=== PATIENT | female | born 1955 | race Caucasian/White ===

== ENCOUNTER 2018-07-19 00:45 | Outpatient (CLI) | payer OTHER, SELFPAY ==
[2018-07-19 09:48] LABS: CREATININE 0.65 mg/dL (0.55-1.02)
--- NOTE | 2018-07-19 10:30 | DI.CT_ITS ---
SYMPTOMS/DIAGNOSIS: DIZZINESS WITH CERVICAL EXTENSION, R42 CT ANGIOGRAPHY CERVICAL REGION: CT angiography was performed with multi slice acquisition and multi planar and 3D reconstruction. CT Angiography was performed with intravenous infusion of 85 cc's of Omnipaque 350. Scanning was performed from the aortic arch to a level just above the [place]. Visualized upper pulmonary lobes appear normal. No cervical mass or adenopathy. Normal appearance of the tracheolaryngeal structures. The orbits appear intact. There is partial opacification of the right maxillary antrum which may represent chronic sinus disease. The visualized brain is unremarkable. The visualized aortic arch appears intact. The major branch vessels appear normal. Common, internal and external carotid arteries are within normal limits bilaterally with no evidence of dissection, aneurysm or stenosis. Intracranial portions of the internal carotid arteries appear normal. Visualized portions of the proximal, middle and anterior cerebral arteries appear normal with no evidence of aneurysm, dissection or stenosis. The vertebral and basilar arteries appear normal with no evidence of aneurysm, dissection or stenosis. Proximal posterior cerebral arteries appear normal. CONCLUSION: Negative CTA cervical region. Scanning from performed from the level of the aortic arch to a level just above the [place].
[2018-07-19] MEDS: Omnipaque 350 MG/ML 100 ML BTL IJ (10:32)
== END 2018-07-19 01:05 ==
PROVIDERS: PCP Family Medicine; Visit Provider Neurological Surgery
DX: R42 Dizziness and giddiness (principal); Z13.89 Encounter for screening for other disorder; J32.9 Chronic sinusitis, unspecified
CPT/HCPCS: 36415; 70498; 82565; J3490

== ENCOUNTER 2018-08-28 09:52 | Outpatient (CLI) | payer OTHER, SELFPAY ==
[2018-08-28 12:31] LABS: Abs Immature Grans 0.02 k/cumm (0.0-0.09); Absolute Basophil Count 0.04 k/cumm (0.0-0.2); Absolute Eosinophil Count 0.03 k/cumm (0.0-0.7); Absolute Lymphocyte Count 0.82 k/cumm (1.2-3.4); Absolute Monocyte Count 0.73 k/cumm (0.11-0.7); Absolute Neutrophil Count 5.12 k/cumm (1.2-6.7); Basophils % 0.6; Eosinophils % 0.4; HCT 42.9 % (36.0-46.0); HGB 14.6 g/dL (12.0-15.5); Immature Grans % 0.3; Lymphocytes % 12.1; Mean Corpuscular Hemoglobin 31.9 pg (27.0-33.0); Mean Corpuscular Volume 93.9 fL (80-95); Mean Platelet Volume 10.6 fL (8.0-11.0); Monocytes % 10.8; Neutrophils % 75.8; Platelet Count 374 x1000/uL (130-400); RBC 4.57 m/cumm (4.00-5.20); White Blood Cell Count 6.76 k/cumm (4.4-10.8)
[2018-08-28 12:54] LABS: TSH (W/Ref FT4) 0.82 uIU/mL (0.358-3.74)
== END 2018-08-28 10:12 ==
PROVIDERS: PCP Family Medicine; Visit Provider Internal Medicine
DX: F41.9 Anxiety disorder, unspecified (principal); N39.0 Urinary tract infection, site not specified
CPT/HCPCS: 36415; 84443; 85025; 87086

== ENCOUNTER 2019-04-29 11:05 | Outpatient (REF) | payer OTHER, SELFPAY ==
--- NOTE | 2019-04-29 10:15 | PAPFT_PTH ---
PATIENT: Mallory Regan LOC: [facility] U#:[id number] AGE/SX: 64/F ROOM: RE04/29/[address]: Brenda Diez MD, DC : 1955 BED: DIS: 04/29/2019 SPEC #: [id number] RECD: 04/29/19 12:55 STATUS: ARCELIA REJulien #: [id number] DOMENICA: 04/29/19 10:[address]: Brenda Diez DEPT: [facility] Cytology RECD BY: Miguelina Iniguez Tissues: 1 - CX/ENDOCX FOR PAP SMEARS Procedures: PAP THIN PREP/UVM Screening HPV DNA PROBE Comments: [id number]
== END 2019-04-29 11:25 ==
LOC: LBN 11:05
PROVIDERS: PCP Family Medicine; Visit Provider Family Medicine
DX: Z12.4 Encounter for screening for malignant neoplasm of cervix (principal); Z11.51 Encounter for screening for human papillomavirus (HPV)
CPT/HCPCS: 88142; 87624

== ENCOUNTER 2020-02-04 01:07 | Outpatient (CLI) | payer BC, SELFPAY ==
--- NOTE | 2020-02-04 11:00 | DI.MAMMO_ITS ---
EXAM: MAMMO SCREENING CLINICAL HISTORY: screening, Z12.39 TECHNIQUE: Mammograms were interpreted according to the usual protocol including computer analysis w [employer] CAD system, tomosynthesis and C-view imaging. COMPARISON: 2011 through 2018 FINDINGS: The breasts are composed of heterogeneously dense fibroglandular densities, Breast Density category C . No suspicious masses or suspicious microcalcifications are seen. No skin thickening or abnormal axillary lymph nodes are seen. There has been no significant change from prior exams. IMPRESSION: BI-RADS Category 1: Negative mammogram Yearly screening mammography is recommended. Breast Density - Category C, heterogeneously dense tissue which decreases the sensitivity of the mamm ogram. The mammogram demonstrates the patient's breast tissue is dense. Dense breast tissue is very common a nd is not abnormal but dense breast tissue can make it harder to find cancer on a mammogram. Also, de nse breast tissue may increase breast cancer risk. This information about the result of the mammogram report was provided to the patient to raise their awareness. Use this report when you speak with the patient about their risks for breast cancer, which includes their family history. At that time, you may recommend additional screening tests (Ultrasound or MRI) as they might be useful based on their r isk. A negative radiographic report should not delay biopsy if a dominant or clinically suspicious mass is present. Up to ten percent of cancers are not identified on mammography. A negative report may reinforce clinical impression. Adenosis and dense breasts may obscure an underlying neoplasm. False positive reports average 6 to 10%.
== END 2020-02-04 01:27 ==
PROVIDERS: PCP Family Medicine; Visit Provider Family Medicine
DX: Z12.31 Encounter for screening mammogram for malignant neoplasm of breast (principal); R92.2 Inconclusive mammogram
CPT/HCPCS: 77063; 77067

== ENCOUNTER 2020-04-05 08:30 | Outpatient (CLI) | payer BC, SELFPAY ==
[2020-04-08 10:29] LABS: Patient Race White; SARS-CoV-2 RNA Undetected (Undetected); SARS-CoV-2 Specimen Source Nasal
== END 2020-04-05 08:50 ==
PROVIDERS: PCP Family Medicine; Visit Provider Family Medicine
DX: Z11.59 Encounter for screening for other viral diseases (principal)
CPT/HCPCS: U0003

== ENCOUNTER 2020-05-05 11:10 | Outpatient (CLI) | payer BC, SELFPAY ==
[2020-05-05 13:13] LABS: HCT 43.1 % (36.0-46.0); HGB 14.2 g/dL (11.2-15.7); MCH 31.2 pg (27.0-33.0); MCHC 32.9 % (32.0-36.0); MCV 94.7 fL (80-95); MPV 10.2 fL (8.0-11.0); Platelet Count 373 10^3/uL (130-400); RBC 4.55 10^6/uL (3.93-5.22); RDW 12.6 % (11.7-14.6); RDW-SD 43.8 fL; WBC 5.19 10^3/uL (4.4-10.8)
[2020-05-05 13:26] LABS: ALT 32 U/L (14-59); AST 23 U/L (15-37); Albumin 4.1 g/dL (3.4-5.0); Alkaline Phosphatase 77 U/L (46-116); Anion Gap 9.3 mmol/L (3-11); BUN 15 mg/dL (7-18); Bilirubin, Total 0.5 mg/dL (0.2-1.0); CO2 27.7 mmol/L (21.0-32.0); Calcium 9.6 mg/dL (8.5-10.1); Calculated LDL 167 mg/dL (<100); Chloride 103 mmol/L (98-107); Cholesterol 279 mg/dL (<200); Glucose 86 mg/dL (74-106); HDL Cholesterol 90 mg/dL (40-60); Potassium 4.3 mmol/L (3.5-5.1); Sodium 140 mmol/L (136-145); TSH (W/Ref FT4) 0.96 uIU/mL (0.36-3.74); Total Protein 7.3 g/dL (6.4-8.2); Triglyceride 112 mg/dL (<150)
[2020-05-06 04:49] LABS: Vitamin D 25 Total 42.8 ng/ml (30-100)
== END 2020-05-05 11:30 ==
PROVIDERS: PCP Family Medicine; Visit Provider Family Medicine
DX: Z00.00 Encounter for general adult medical examination without abnormal findings (principal); K58.9 Irritable bowel syndrome, unspecified; R25.1 Tremor, unspecified; G47.00 Insomnia, unspecified
CPT/HCPCS: 36415; 80053; 80061; 82306; 85027; 84443

== ENCOUNTER 2020-09-20 03:28 | Outpatient (CLI) | payer BC, SELFPAY ==
[2020-09-20 09:52] LABS: Source Nasal/Nares
[2020-09-20 13:22] LABS: COVID-19 PCR Negative (Negative)
== END 2020-09-20 03:29 | disposition home or self-care (01) ==
LOC: LBO 03:28
PROVIDERS: PCP Family Medicine; Visit Provider Surgery
DX: Z20.822 Contact with and (suspected) exposure to COVID-19 (principal); Z01.818 Encounter for other preprocedural examination
CPT/HCPCS: 87635

== ENCOUNTER 2020-09-21 08:21 | Day surgery (SDC) | payer BC, SELFPAY ==
[2020-09-21 08:26] VITALS: BP 107/70; PULSE 75; RESP 16; TEMP 36.4; O2SAT 99
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
[2020-09-21] MEDS: Lactated Ringers 1,000 ML 80 ML IV (09:17)
[2020-09-21 09:56] VITALS: BMI 23.6
--- NOTE | 2020-09-21 10:05 | STOM_PTH ---
PATIENT: Mallory Regan LOC: [facility] U#:[id number] AGE/SX: 65/F ROOM: RE09/21/[address]: Corrie Ricardo : 1955 BED: DIS: 09/21/2020 SPEC #: [id number] RECD: 09/21/20 12:48 STATUS: ARCELIA RE #: [id number] DOMENICA: 09/21/20 10:[address]: Corrie Ricardo DEPT: Surgical Specimen RECD BY: Miguelina Iniguez ENTERED: 09/21/20 12:51 SP TYPE: STOMACH OTHR DR: Brenda Diez MD, DC Tissues: 1 - BIOPSY BOWEL 2 - BIOPSY BOWEL 3 - STOMACH BIOPSY 4 - STOMACH BIOPSY 5 - HERNIA SAC,OTHER 6 - ESOPHAGUS BIOPSY 7 - ESOPHAGUS BIOPSY Procedures: GROSS AND MICRO LEVEL 4 Comments: [id number]
--- NOTE | 2020-09-21 10:23 | W.PM.DSUDISC ---
Discharge Plan Disposition Patient Disposition: HOME Condition: Good Discharge Details Reason For Visit: stomach scope Attending Provider: Corrie Ricardo Primary Care Provider: Brenda Diez Home Meds and New Rx's Prescriptions: Continued cholecalciferol (vitamin D3) 2,000 unit capsule 2,000 unit PO DAILY RF: 0 Adult Probiotic 3 billion cell capsule 3,000 mmu cells PO DAILY RF: 0 omeprazole 20 mg capsule,delayed release(DR/EC) 20 mg PO BID Qty: 60 RF: 1 sucralfate [Carafate] 1 gram tablet 1 g PO QACHS Qty: 90 RF: 1 duloxetine 30 mg capsule,delayed release(DR/EC) 30 mg PO DAILY Qty: 7 RF: 5 gabapentin 100 mg capsule 200 mg PO QHS Qty: 180 RF: 4 Discontinued ibuprofen [Advil] 200 mg tablet 600 mg PO Q6H PRNRF: 0 Discharge Instructions Additional Instructions: Findings: Large hiatal hernia Follow up: 10/07 @ 1pm. Continue with lifestyle modifications: no alcohol, tobacco products, Aspirin or NSAID's (ibuprofen, Motrin, Naprosyn, aleve, etc). Try to minimize: soda pop/any carbonated beverages, caffeine (including tea & chocolate), and acidic foods, (tomatoes, citrus, onions, peppermints) spicy or fried/fatty foods. Do not lie down for 30 minutes after eating, and do not eat 2 hours prior to bedtime. Avoid wearing tight fitting clothing/ belts Please call if you develop: fevers >101.5 Nausea or Vomiting Abdominal pain that is not transient DAY SURGERY UNIT POST EGD INSTRUCTIONS 1. Because there will be medication in your system for the next 24 hours, you may feel a little sleepy. Your coordination will be affected. Therefore: a. Do not drive or operate dangerous equipment for 24 hours. b. Do not drink alcohol beverages for 24 hours (not even beer). c. Plan to go home and rest for the day. d. You may have a slight sore throat for the next 24 to 48 hours. If you do, gargle with salt water 5-6 times a day for relief. 2. Generally there are no restrictions on your activity after a day or so has gone by, but you may feel a bit fatigued for a few days. 3 After you arrive home you may have a light meal and return to a normal diet as you can tolerate it without feeling sick to your stomach. 4. After surgery, you may feel pain or discomfort. This should be only transient, but if it persists please contact your doctor. 5. If there are any questions regarding the findings of your procedure, please feel free to contact your doctor. 6. If you are unable to contact your doctor with a problem, contact the hospital at [phone]. 7. Continue all your regular medications unless directed otherwise. I understand the above instructions and have no questions. Signature of Patient or Responsible Adult Escort Date/Time Name of Responsible Adult Escort Signature of Nurse Date/Time Activity:: No lifting over 20 pounds or strenuous to be x24 hours Diet:: Small light meals x24 hours Discharge Orders Discharge Orders: Discharge Order (Routine); Ordered 09/21/20 Ordered By: Corrie Ricardo DS: Diagnosis Discharge Diagnosis (1) Hiatal hernia with GERD: Status: Acute
--- NOTE | 2020-09-21 10:24 | W.ANESPOSTOP ---
Postoperative Evaluation Date, Time and Location Date Performed: 09/21/20 Time Performed: 10:25 Patient Location: Day Surgery Unit Vital Signs Most Recent Imported Vital Signs: Most Recent Vital Signs Temp Pulse Resp BP Pulse Ox 36.4 C L 75 16 107/70 99 09/21/20 08:26 09/21/20 08:26 09/21/20 08:26 09/21/20 08:26 09/21/20 08:26 Most Recent Manually Entered Vital Signs: Adult Blood Pressure: 98/59 Heart Rate: 79 Respirations: 16 Oxygen Saturation (%): 96 Temperature (C): 36.2 C Pain Score (0-10 Scale): 0 Assessment Mental Status: Awake (Alert & Oriented to Patient Baseline) Airway and Respiratory Function: Patent airway with normal (patient baseline) respiratory exam Cardiovascular Function: Hemodynamically Stable Hydration Status: Adequately Hydrated Nausea & Vomiting: No Nausea or Vomiting Pain: Pt. Denies Any Pain Peripheral Nerve Block: Patient did not receive a nerve block
[2020-09-21 10:25] VITALS: BP 98/56; PULSE 79; RESP 16; TEMP 36.2; O2SAT 96
[2020-09-21 10:26] VITALS: BP 98/59; PULSE 79; RESP 16; TEMPC 36.2; O2SAT 96
[2020-09-21] MEDS: Breeza Beverage 473 ML BTL PO (10:39)
[2020-09-21 10:55] VITALS: BP 130/75; PULSE 69; RESP 16; TEMP 36.3; O2SAT 98
--- NOTE | 2020-09-21 11:00 | DI.CT_ITS ---
EXAM: CT CHEST/ABD W CLINICAL HISTORY: eval of hiatal hernia TECHNIQUE: Imaging Protocol: Axial computed tomography images with coronal and sagittal reformatted images were created and reviewed CONTRAST MATERIAL: Intravenous: Omnipaque 350 Contrast volume:100 mL Oral: Yes COMPARISON: CT CT carotid neck CTA from 07/19/2018 FINDINGS: CHEST: Tracheobronchial tree: Patent where visualized. Pulmonary parenchyma: There is scarring or atelectasis in the lower lobes. No focal consolidating in filtrates are present. No pulmonary nodules are seen. Visualized thyroid gland: Unremarkable. Mediastinum and Pascale: No dominant adenopathy or fluid collection. Pleura: No effusion or pneumothorax. Heart: The heart is not dilated. No coronary artery calcifications are seen. No pericardial effusion. Aorta: Thoracic aorta non-dilated. Lymph nodes: Within normal limits. Soft tissues: Unremarkable. Bones:Normal. ABDOMEN: Liver: Normal density. Several tiny hypodense lesions are seen scattered throughout the liver. They are too small for further characterization but likely reflect small cysts. There is a 1.4 cm simple cyst in the posterior segment of the right lobe of the liver. No suspicious hepatic masses are prese nt. Portal, Superior Mesenteric, and Splenic Veins: Unremarkable. Gallbladder and Biliary Tract: Cholelithiasis. No biliary ductal dilatation. Pancreas: Normal density, no abnormal calcifications or inflammatory process. Spleen: Normal. Adrenals: There is a 0.8 cm hypodense nodule in the right adrenal gland. This likely reflects a smal l adenoma. Kidneys: Normal size, contour and axis. No radiodense stones or obstructive uropathy. No masses seen. Abdominal Aorta: Abdominal portion non-dilated. Mild atherosclerosis. Bowel: No obstruction or bowel wall thickening. There is a large hernia with the majority of the stom ach above the diaphragm. Peritoneal Cavity: No ascites, collection or mesenteric inflammatory response. No free air. Lymph Nodes: Within normal limits. Bones: Unremarkable. Soft Tissues: Unremarkable. IMPRESSION: 1. There is a large hiatal hernia with the majority of the stomach seen above the diaphragm. 2. No acute abnormalities seen in the chest or abdomen. 3. Please see the above discussion for complete details. RADIATION DOSE DELIVERED: 770.04mGy.cm Total DLP DATA REPOSITORY: All CT scans at this facility are submitted to the National Radiology Data Registry (NRDR) Dose Index Registry (DIR) with the [employer] (ACR). RADIATION OPTIMIZATION: All CT scans at this facility use at least one of these dose optimization te chniques: automated exposure control; mA and/or kV adjustment per patient size (includes targeted exa ms where dose is matched to clinical indication); or iterative reconstruction.
[2020-09-21] MEDS: Omnipaque 350 MG/ML 100 ML BTL IJ (12:16)
--- NOTE | 2020-09-23 10:44 | W.PM.ENDDOP ---
Date of service: 09/21/20 Time of Service: 10:30 Endoscopy Report DATE OF PROCEDURE: 09/21/20 PRE-OP DIAGNOSIS: s/s gerd POST-OP DIAGNOSIS: other (lg hiatal hernia ) SURGEON: Corrie Ricardo ANESTHESIA TYPE: General:No Airway PATHOLOGY: other COMPLICATIONS: None DISPOSITION: same day PROCEDURE DESCRIPTION: After informed consent was obtained the patient was take to the procedure room and placed in a supine position. Monitors were applied and a time out was done. The patients name, date of , procedure type, allergies to medications and metal in their body was reviewed. A bite block was placed and the patient was sedated. Once sedated and comfortable the gastroscope was advanced through the oropharynx which was grossly normal into the esophagus. The proximal and mid-esophagus were nl. He has a very large hiatal hernia. At least a third of her stomach is a in her chest. The GE junction is at 32 cm and where the stomach exits the diaphragm is at approximately 40 cm. The mucosa appears pink and healthy. There is not esophageal erosions varices diverticula or stricture apparent. The scope was advanced into the stomach and through the pylorus into the 3rd portion of the duodenum. The duodenum was noted to be normal. Biopsies were done, all specimen is retrieved and no bleeding is noted. the scope was retracted back into the stomach and biopsies were done to rule out H. pylori. There were no gastritis or ulcers ulcers. The scope was retroflexed. The cardia and fundus were noted to be normal. The scope was retracted back into the esophagus and biopsies were done of the GE junction to rule out Bain's. The Z line was regular. The scope was removed and the patient was woken up and taken back to [facility] in stable condition. Follow up: Patient is symptomatic and having reflux issues. She has a very large hiatal hernia. Her mother had one as well. She is still young and fit with minimal health problems. We did discuss that this could be become a more severe problem with the older she gets. We briefly discussed surgical repair. We will obtain a CT today. I will see her back at 2 weeks in the office and we will review the results and discuss surgery in more in detail at that time.
--- NOTE | 2020-09-26 21:46 | W.COLOREPORT ---
Date of service: 09/21/20 Time of Service: 11:00 Colonoscopy Report Date of procedure: 09/21/20 Pre-op diagnosis general: screen Post-op diagnosis procedure note: same Surgeon: Corrie Ricardo Anesthesia Type: General:No Airway Estimated blood loss (mL): 0 Pathology: none sent Complications: None Disposition: same day Prep: Miralax/Dulcolax Retraction Time: 8 mins Procedure Description: After informed consent was obtained the patient was taken to the procedure room and placed in a left decubitous position. Monitors were applied and a time out was done. The patients name, date of , procedure, allergies to medications and metal in their body was reviewed. The patient was then sedated. Once sedated and comfortable a rectal exam was done. External exam was normal. Internal exam revealed a normal sphincter tone and no palpable masses. The scope was then introduced and retrofelexed. No internal hemorrhoids were identified. The scope was then advanced to the cecum without difficulty. The TI and appendiceal orifice were identified. The prep was good. The scope was then slowly retracted over 8 minutes back into the rectum. There are no polyps, AVMs, or diverticula visualized today. The mucosa appears pink and healthy. The scope was removed and the patient was woken up and taken back to Same day surgery in stable condition. The patient tolerated the procedure well and there were no immediate complications. Follow up: The patient should follow up in 10 years, if she is still healthy for anesthesia, unless they develop changes in bowel habits or other new gastrointestinal complaints.
== END 2020-09-21 12:00 | disposition home or self-care (01) ==
PROVIDERS: PCP Family Medicine; Visit Provider Surgery
PROC: 0DJ68ZZ Inspection of Stomach, Via Natural or Artificial Opening Endoscopic (ICD-10-PCS; CPT 43235; principal; 2020-09-21 09:45)
DX: Z12.11 Encounter for screening for malignant neoplasm of colon (principal); K44.9 Diaphragmatic hernia without obstruction or gangrene; K21.9 Gastro-esophageal reflux disease without esophagitis; F41.1 Generalized anxiety disorder; I10 Essential (primary) hypertension; E78.5 Hyperlipidemia, unspecified; K58.9 Irritable bowel syndrome, unspecified; R10.12 Left upper quadrant pain
CPT/HCPCS: 43239; 45378; 88305; 71260; 74160; 88302; J2001; J3490

== ENCOUNTER 2021-07-06 00:24 | Outpatient (CLI) | payer BC, SELFPAY ==
--- NOTE | 2021-07-06 12:17 | DI.MAMMO_ITS ---
Exam(s) MAMMO SCREENING EXAM: MAMMO SCREENING CLINICAL HISTORY: screening,Z12.39. TECHNIQUE: Bilateral full field digital CC and MLO mammographic images were obtained with 3D tomosyn thesis and utilizing computer aided detection (CAD). COMPARISON: Prior mammograms were reviewed, the most recent being January 2020. FINDINGS: The fibroglandular tissue pattern is again noted be dense, this somewhat decreasing the sensitivity o f the mammogram for finding hidden underlying lesions. There are no new obvious masses nor malignant appearing microcalcification groups. There is no significant architectural distortion nor skin thickening-retraction. IMPRESSION: Dense bilateral fibroglandular tissue. No obvious radiographic evidence of malignancy nor significan t change compared to prior mammograms. BI-RADS Category 2 - Benign Findings Breast Density - Category C - Heterogeneously dense Breast density Category C or D implies that the patient has dense breast tissue. Dense breast tissue can make it harder to find cancer on a mammogram. Dense breast tissue is also associated with an incr eased risk of breast cancer. This information about the result of the mammogram report was provided to the patient to raise their awareness. Use this report when you speak with the patient about their risks for breast cancer, which includes their family history. At that time, you may recommend additional screening tests (Ultrasoun d or MRI) as these tests may add significant information. A negative radiographic report should not delay biopsy if a dominant or clinically suspicious mass is present. Up to ten percent of cancers are not identified on mammography. A negative report may reinforce clinical impression. Adenosis and dense breasts may obscure an underlying neoplasm. False positive reports average 6 to 10%. Patient will receive a letter notifying them of these results.
== END 2021-07-06 00:44 ==
PROVIDERS: PCP Family Medicine; Visit Provider Family Medicine
DX: Z12.31 Encounter for screening mammogram for malignant neoplasm of breast (principal)
CPT/HCPCS: 77063; 77067

== ENCOUNTER → 2022-02-24 01:00 | Outpatient (CLI) | payer BC, SELFPAY ==
--- NOTE | 2022-02-24 08:00 | DI.RAD_ITS ---
Exam(s) XR KNEE RT 3V AP,LAT,JAMIE EXAM: XR KNEE RT 3V AP,LAT,JAMIE CLINICAL HISTORY: r knee pain and swelling,m25.561 TECHNIQUE: COMPARISON: No exams were available for comparison FINDINGS: Three views were obtained. There is moderate narrowing of the medial tibiofemoral cartilaginous join t space. Otherwise cartilaginous joint spaces appear well maintained. There appears to be a moderat e knee joint effusion, visible on the lateral view. There is mild marginal osteophyte formation at the medial tibiofemoral joint. No other significant b shyanne abnormality seen. IMPRESSION: Degenerative changes predominantly involving medial tibiofemoral joint. RADIATION DOSE DELIVERED: Total DLP
== END ==
PROVIDERS: PCP Family Medicine; Visit Provider Family Medicine
DX: M17.11 Unilateral primary osteoarthritis, right knee (principal)
CPT/HCPCS: 73562

== ENCOUNTER 2022-06-29 09:55 | Outpatient (REF) | payer MEDICARE, BC, SELFPAY ==
--- NOTE | 2022-06-29 09:10 | PAPFT_PTH ---
PATIENT: Mallory Regan LOC: [facility] U#:[id number] AGE/SX: 67/F ROOM: RE06/29/[address]: Brenda Diez MD, DC : 1955 BED: DIS: 06/29/2022 SPEC #: [id number] RECD: 06/29/22 12:58 STATUS: ARCELIA REQ #: [id number] DOMENICA: 06/29/22 09:[address]: Brenda Diez DEPT: [facility] Cytology RECD BY: Miguelina Iniguez Tissues: 1 - CX/ENDOCX FOR PAP SMEARS Procedures: PAP THIN PREP/UVM Screening HPV DNA PROBE Comments: [id number]
== END 2022-06-29 09:56 | disposition home or self-care (01) ==
LOC: LBN 09:55
PROVIDERS: PCP Family Medicine; Visit Provider Family Medicine
DX: Z12.4 Encounter for screening for malignant neoplasm of cervix (principal); Z11.51 Encounter for screening for human papillomavirus (HPV); Z01.419 Encounter for gynecological examination (general) (routine) without abnormal findings
CPT/HCPCS: 88142; 87624

== ENCOUNTER 2022-07-19 02:43 | Outpatient (CLI) | payer MEDICARE, BC, SELFPAY ==
[2022-07-19 09:09] LABS: ALT 45 U/L (14-59); AST 27 U/L (15-37); Albumin 4.2 g/dL (3.4-5.0); Alkaline Phosphatase 85 U/L (46-116); Anion Gap 7.6 mmol/L (3-11); BUN 14 mg/dL (7-18); Bilirubin, Total 0.5 mg/dL (0.2-1.0); CO2 30.4 mmol/L (21.0-32.0); CREATININE 0.8 mg/dL (0.55-1.02); Calcium 9.9 mg/dL (8.5-10.1); Calculated LDL 135 mg/dL (<100); Chloride 106 mmol/L (98-107); Cholesterol 243 mg/dL (<200); Estimated GFR 81.72 (mL/min/1.73m2); Glucose 96 mg/dL (74-106); HDL Cholesterol 89 mg/dL (40-60); Sodium 144 mmol/L (136-145); TSH (W/Ref FT4) 1.19 uIU/mL (0.36-3.74); Total Protein 8.2 g/dL (6.4-8.2); Triglyceride 98 mg/dL (<150)
== END 2022-07-19 02:44 | disposition home or self-care (01) ==
LOC: LBO 02:43
PROVIDERS: PCP Family Medicine; Visit Provider Family Medicine
DX: E78.5 Hyperlipidemia, unspecified (principal); F41.1 Generalized anxiety disorder; F32.89 Other specified depressive episodes
CPT/HCPCS: 36415; 80053; 80061; 84443

== ENCOUNTER 2022-08-04 00:11 | Outpatient (CLI) | payer MEDICARE, BC, SELFPAY ==
--- NOTE | 2022-08-04 07:45 | DI.DEXA_ITS ---
Exam(s) XR DEXA BONE DENSITY W/WO ASHLIE EXAM: XR DEXA BONE DENSITY W/WO ASHLIE CLINICAL HISTORY: MENOPASUAL OSTEOPOROSIS, M81.0 TECHNIQUE: COMPARISON: No exams were available for comparison FINDINGS: Lateral Spine Image: Unremarkable. No compression deformities identified. Left hip: Total T-Score: -0.4. Total Z-Score: 0.9 T- and Z-scores: Within normal limits. Note is made of osteopenia in the femoral neck with a T-score of -1.1. Lumbar Spine: Total T-Score: -0.7 Total Z-Score: 1.0 T- and Z-scores: Within normal limits. IMPRESSION: No evidence of osteoporosis.
--- NOTE | 2022-08-04 15:22 | DI.MAMMO_ITS ---
Exam(s) MAMMO SCREENING EXAM: MAMMO SCREENING CLINICAL HISTORY: screening,Z12.39 TECHNIQUE: Bilateral full field digital CC and MLO mammographic images were obtained with 3D tomosyn thesis and utilizing computer aided detection (CAD). COMPARISON: Available for comparison. FINDINGS: Masses/Architectural Distortion: None seen. Microcalcifications: No suspicious pleomorphic-type are seen. Skin Thickening/Nipple Retraction: None. IMPRESSION: 1. No significant interval change with no specific features of malignancy noted. 2. Unless there is more urgent need, screening mammography is recommended, as per [employer] guidelines. BI-RADS Category 1 - Negative Breast Density - Category C - Heterogeneously dense Breast density category C or D implies that the patient has dense breast tissue. Dense breast tissue is very common and is not abnormal but dense breast tissue can make it harder to find cancer on a ma mmogram. Also, dense breast tissue may increase their breast cancer risk. This information about the result of the mammogram report was provided to the patient to raise their awareness. Use this report when you speak with the patient about their risks for breast cancer, which includes their family hist ory. At that time, you may recommend for more screening tests (Ultrasound or MRI) as they might be us eful based on their risk. A negative radiographic report should not delay biopsy if a dominant or clinically suspicious mass is present. Up to ten percent of cancers are not identified on mammography. A negative report may reinforce clinical impression. Adenosis and dense breasts may obscure an underlying neoplasm. False positive reports average 6 to 10%. Patient will receive a letter notifying them of these results.
== END 2022-08-04 00:31 ==
LOC: DI 00:11
PROVIDERS: PCP Family Medicine; Visit Provider Family Medicine
DX: M81.0 Age-related osteoporosis without current pathological fracture (principal); Z12.31 Encounter for screening mammogram for malignant neoplasm of breast; Z78.0 Asymptomatic menopausal state
CPT/HCPCS: 77063; 77067; 77080

== ENCOUNTER 2022-08-17 16:01 | Outpatient (REF) | payer MEDICARE, BC, SELFPAY | END 2022-08-17 16:02 | disposition home or self-care (01) | LOC: LBN 16:01 | PROVIDERS: PCP Family Medicine; Visit Provider Family Medicine | DX: R19.7 Diarrhea, unspecified (principal) | CPT/HCPCS: 87329 ==

== ENCOUNTER 2022-09-08 01:31 | Outpatient (CLI) | payer MEDICARE, BC, SELFPAY ==
[2022-09-11 13:50] LABS: Apolipoprotein B, S 102 mg/dL (See Comment)
[2022-09-11 16:46] LABS: Apolipoprotein A1, S 149 mg/dL (>=140); Apolipoprotein B/A 1 ratio 0.7 (See Comment)
== END 2022-09-08 01:32 | disposition home or self-care (01) ==
LOC: LBO 01:31
PROVIDERS: PCP Family Medicine; Visit Provider Family Medicine
DX: E78.5 Hyperlipidemia, unspecified (principal)
CPT/HCPCS: 36415; 82172

== ENCOUNTER → 2022-11-03 10:02 | Outpatient (BNVA) | payer MEDICARE, BC, SELFPAY | PROVIDERS: PCP Family Medicine; Referring Provider Family Medicine; Visit Provider Physician Assistant | DX: M17.11 Unilateral primary osteoarthritis, right knee (principal); M70.51 Other bursitis of knee, right knee | CPT/HCPCS: 20610; 99213; J1030; J1040 ==

== ENCOUNTER → 2023-02-05 08:47 | Outpatient (BNVA) | payer MEDICARE, BC, SELFPAY | PROVIDERS: PCP Family Medicine; Referring Provider Family Medicine; Visit Provider Student in an Organized Health Care Education/Training Program | DX: M17.11 Unilateral primary osteoarthritis, right knee (principal); M70.51 Other bursitis of knee, right knee | CPT/HCPCS: 99213 ==

== ENCOUNTER 2023-04-02 16:24 | Outpatient (REF) | payer MEDICARE, BC, SELFPAY ==
[2023-04-02 17:09] LABS: Bilirubin Negative (Negative); Blood Moderate (Negative); Clarity Clear (Clear); Glucose Negative (Negative); Ketones Negative (Negative); Leukocyte Esterase Small (Negative); Nitrite Negative (Negative); Specific Gravity <= 1.005 (1.005-1.025); Urobilinogen 0.2 mg/dL (Up to 0.2); pH 5.5 (5-8)
[2023-04-02 17:31] LABS: Bacteria Rare HPF (Negative); C & S Indicated? Yes; Casts Negative LPF (Negative); Crystals Negative HPF (Negative); Epithelial Cells Rare HPF (Negative); Mucus Negative (Negative); RBC 0-2 HPF (0-2)
== END 2023-04-02 16:25 | disposition home or self-care (01) ==
LOC: LBN 16:24
PROVIDERS: PCP Family Medicine; Visit Provider Obstetrics & Gynecology Gynecology
DX: R39.15 Urgency of urination (principal)
CPT/HCPCS: 87077; 81003; 81015; 87086; 87186

== ENCOUNTER 2023-05-23 15:15 | Outpatient (REF) | payer MEDICARE, BC, SELFPAY | END 2023-05-23 15:16 | disposition home or self-care (01) | LOC: LBN 15:15 | PROVIDERS: PCP Family Medicine; Visit Provider Family Medicine | DX: R19.7 Diarrhea, unspecified (principal) | CPT/HCPCS: 87329 ==

== ENCOUNTER 2023-05-27 15:14 | Outpatient (REF) | payer MEDICARE, BC, SELFPAY ==
[2023-05-27 20:32] LABS: C Diff PCR Negative (Negative)
== END 2023-05-27 15:15 | disposition home or self-care (01) ==
LOC: LBN 15:14
PROVIDERS: PCP Family Medicine; Visit Provider Family Medicine
DX: R19.7 Diarrhea, unspecified (principal)
CPT/HCPCS: 87493

== ENCOUNTER 2023-06-20 02:49 | Outpatient (CLI) | payer MEDICARE, BC, SELFPAY ==
[2023-06-20 11:16] LABS: HCT 44.7 % (36.0-46.0); HGB 14.7 g/dL (11.2-15.7); MCH 30.7 pg (27.0-33.0); MCHC 32.9 % (32.0-36.0); MCV 93 fL (80-95); MPV 9.9 fL (8.0-11.0); Platelet Count 347 10^3/uL (130-400); RBC 4.79 10^6/uL (3.93-5.22); RDW 12.7 % (11.7-14.6); RDW-SD 43.8 fL; WBC 6.68 10^3/uL (4.4-10.8)
[2023-06-20 11:48] LABS: ALT 38 U/L (14-59); AST 27 U/L (15-37); Alkaline Phosphatase 95 U/L (46-116); Anion Gap 7.9 mmol/L (3-11); BUN 16 mg/dL (7-18); Bilirubin, Total 0.3 mg/dL (0.2-1.0); CO2 29.1 mmol/L (21.0-32.0); CREATININE 0.7 mg/dL (0.55-1.02); Calcium 9.6 mg/dL (8.5-10.1); Calculated LDL 126 mg/dL (<100); Chloride 103 mmol/L (98-107); Cholesterol 242 mg/dL (<200); Estimated GFR 95.32 (mL/min/1.73m2); Glucose 96 mg/dL (74-106); HDL Cholesterol 76 mg/dL (40-60); Sodium 140 mmol/L (136-145); TSH (W/Ref FT4) 0.95 uIU/mL (0.36-3.74); Total Protein 8.1 g/dL (6.4-8.2); Triglyceride 203 mg/dL (<150)
[2023-06-20 12:56] LABS: C-Reactive Protein < 0.05 mg/dL (0.0-0.3)
[2023-06-22 15:57] LABS: IgA 236 mg/dL (85-499); Interpretation (See Note); Tissue Transglutaminase IgA <4.0 CU (<20.0)
[2023-06-23 11:19] LABS: Apolipoprotein A1, S 187 mg/dL (>=140); Apolipoprotein B, S 100 mg/dL (See Comment); Apolipoprotein B/A 1 ratio 0.5 (See Comment)
== END 2023-06-20 02:50 | disposition home or self-care (01) ==
LOC: LBO 02:49
PROVIDERS: PCP Family Medicine; Visit Provider Family Medicine
DX: I10 Essential (primary) hypertension (principal); R19.7 Diarrhea, unspecified; E78.00 Pure hypercholesterolemia, unspecified; E03.9 Hypothyroidism, unspecified
CPT/HCPCS: 36415; 80053; 80061; 82172; 82784; 83516; 85027; 84443; 86140

== ENCOUNTER → 2023-06-25 08:33 | Outpatient (BNVA) | payer MEDICARE, BC, SELFPAY | PROVIDERS: PCP Family Medicine; Referring Provider Family Medicine; Visit Provider Student in an Organized Health Care Education/Training Program | DX: M65.341 Trigger finger, right ring finger (principal); M65.342 Trigger finger, left ring finger; M18.0 Bilateral primary osteoarthritis of first carpometacarpal joints | CPT/HCPCS: 20550; J1030 ==

== ENCOUNTER → 2023-08-08 02:49 | Outpatient (CLI) | payer MEDICARE, BC, SELFPAY ==
--- NOTE | 2023-08-08 08:30 | DI.MAMMO_ITS ---
Exam(s) MAMMO SCREENING EXAM: MAMMO SCREENING CLINICAL HISTORY: screening,z12.39 TECHNIQUE: Bilateral full field digital CC and MLO mammographic images were obtained with 3D tomosyn thesis and utilizing computer aided detection (CAD). COMPARISON: Available for comparison. FINDINGS: Masses/Architectural Distortion: None seen. Microcalcifications: No suspicious pleomorphic-type are seen. Skin Thickening/Nipple Retraction: None. IMPRESSION: 1. No significant interval change with no specific features of malignancy noted. 2. Unless there is more urgent need, screening mammography is recommended, as per [employer] guidelines. BI-RADS Category 1 - Negative Breast Density - Category C - Heterogeneously dense Breast density category C or D implies that the patient has dense breast tissue. Dense breast tissue is very common and is not abnormal but dense breast tissue can make it harder to find cancer on a ma mmogram. Also, dense breast tissue may increase their breast cancer risk. This information about the result of the mammogram report was provided to the patient to raise their awareness. Use this report when you speak with the patient about their risks for breast cancer, which includes their family hist ory. At that time, you may recommend for more screening tests (Ultrasound or MRI) as they might be us eful based on their risk. A negative radiographic report should not delay biopsy if a dominant or clinically suspicious mass is present. Up to ten percent of cancers are not identified on mammography. A negative report may reinforce clinical impression. Adenosis and dense breasts may obscure an underlying neoplasm. False positive reports average 6 to 10%. Patient will receive a letter notifying them of these results.
== END ==
PROVIDERS: PCP Family Medicine; Visit Provider Family Medicine
DX: Z12.31 Encounter for screening mammogram for malignant neoplasm of breast (principal)
CPT/HCPCS: 77063; 77067

== ENCOUNTER → 2023-08-20 02:25 | Outpatient (CLI) | payer MEDICARE, BC, SELFPAY ==
--- NOTE | 2023-08-20 10:25 | DI.RAD_ITS ---
Exam(s) XR FOOT RT COMPLETE EXAM: XR FOOT RT COMPLETE CLINICAL HISTORY: right foot pain,m79.671. TECHNIQUE: 2D digital imaging was performed of the right foot. Three images were obtained. AP, obl ique and lateral views were obtained. COMPARISON: No exams were available for comparison FINDINGS: BONES: No acute fracture is present. No bony destructive lesion is seen. Small enthesophyte is seen a t the posterior calcaneus. JOINTS: No dislocation present. There is mild joint space narrowing and spurring seen at the 1st and 2nd MTP joints. SOFT TISSUE: Normal. IMPRESSION: Mild degenerative changes seen in the foot. DATA REPOSITORY: RADIATION DOSE DELIVERED:
== END ==
PROVIDERS: PCP Family Medicine; Visit Provider Nurse Practitioner Family
DX: M25.561 Pain in right knee (principal); M79.671 Pain in right foot
CPT/HCPCS: 73630

== ENCOUNTER 2023-08-24 11:28 | Outpatient (REF) | payer MEDICARE, BC, SELFPAY ==
[2023-08-24 12:14] LABS: Bilirubin Negative (Negative); Blood Negative (Negative); Clarity Clear (Clear); Glucose Negative (Negative); Ketones Negative (Negative); Leukocyte Esterase Negative (Negative); Nitrite Negative (Negative); Urobilinogen 0.2 mg/dL (Up to 0.2); pH 5.5 (5-8)
== END 2023-08-24 11:29 | disposition home or self-care (01) ==
LOC: LBN 11:28
PROVIDERS: PCP Family Medicine; Visit Provider Family Medicine
DX: R31.9 Hematuria, unspecified (principal)
CPT/HCPCS: 81003

== ENCOUNTER 2023-11-15 12:46 | Outpatient (REF) | payer MEDICARE, BC, SELFPAY | END 2023-11-15 12:47 | disposition home or self-care (01) | LOC: LBN 12:46 | PROVIDERS: PCP Family Medicine; Visit Provider Physician Assistant | DX: N39.0 Urinary tract infection, site not specified (principal) | CPT/HCPCS: 87077; 87086; 87186 ==

== ENCOUNTER 2023-12-04 18:25 | Outpatient (REF) | payer MEDICARE, BC, SELFPAY ==
[2023-12-04 13:58] LABS: Bilirubin Negative (Negative); Blood Negative (Negative); Clarity Clear (Clear); Glucose Negative (Negative); Ketones Negative (Negative); Leukocyte Esterase Trace (Negative); Nitrite Negative (Negative); Specific Gravity <= 1.005 (1.005-1.025); Urobilinogen 0.2 mg/dL (Up to 0.2); pH 5.5 (5-8)
[2023-12-04 14:13] LABS: C & S Indicated? No; Epithelial Cells Rare HPF (Negative); WBC 0-2 HPF (0-5)
== END 2023-12-04 18:26 | disposition home or self-care (01) ==
LOC: LBN 18:25
PROVIDERS: PCP Family Medicine; Visit Provider Family Medicine
DX: N39.0 Urinary tract infection, site not specified (principal)
CPT/HCPCS: 81003; 81015

== ENCOUNTER 2023-12-11 17:55 | Outpatient (REF) | payer MEDICARE, BC, SELFPAY ==
[2023-12-11 17:42] LABS: Bilirubin Negative (Negative); Blood Negative (Negative); Clarity Clear (Clear); Glucose Negative (Negative); Ketones Negative (Negative); Leukocyte Esterase Negative (Negative); Nitrite Negative (Negative); Specific Gravity <= 1.005 (1.005-1.025); Urobilinogen 0.2 mg/dL (Up to 0.2); pH 5.5 (5-8)
[2023-12-11 21:44] LABS: Bilirubin Negative (Negative); Blood Negative (Negative); Clarity Clear (Clear); Glucose Negative (Negative); Ketones Negative (Negative); Leukocyte Esterase Negative (Negative); Nitrite Negative (Negative); Urobilinogen 0.2 mg/dL (Up to 0.2); pH 5.5 (5-8)
== END 2023-12-11 17:56 | disposition home or self-care (01) ==
LOC: LBN 17:55
PROVIDERS: Nurse Practitioner Family; PCP Family Medicine; Visit Provider Family Medicine
DX: R30.0 Dysuria (principal); R39.9 Unspecified symptoms and signs involving the genitourinary system
CPT/HCPCS: 81003; 87480; 87510; 87660

== ENCOUNTER → 2024-01-04 09:34 | Outpatient (BNVA) | payer MEDICARE, BC, SELFPAY | PROVIDERS: PCP Family Medicine; Referring Provider Family Medicine | DX: M70.51 Other bursitis of knee, right knee (principal) | CPT/HCPCS: 20610; J1010 ==

== ENCOUNTER 2024-02-06 09:55 | Outpatient (CLI) | payer MEDICARE, BC, SELFPAY ==
--- NOTE | 2024-02-06 08:15 | DI.RAD_ITS ---
Exam(s) XR CERVICAL SPINE COMP 4-5V EXAM: XR CERVICAL SPINE COMP 4-5V CLINICAL HISTORY: neck and left arm pain M48.02 SPINAL STENOSIS CERVICAL REGION. TECHNIQUE: 2D digital imaging was performed. Five views were performed. COMPARISON: No exams were available for comparison FINDINGS: BONES: No fracture or destructive lesion. Vertebral bodies are unremarkable. Facet degenerative delfino nges are present greatest at C2-3 and C7-T1. DISKS: Mild narrowing of the C3-4 through C6-7 disc spaces. Small endplate osteophytes are present a t C5-6 and C6-7 which cause mild bilateral neural foraminal narrowing. ALIGNMENT: Cervical spinal alignment is within normal limits. The odontoid and atlantoaxial articulat ions are normal. SOFT TISSUE: Normal. The lung apices are clear. IMPRESSION: Degenerative changes at C 5 6 and C6-7 cause mild bilateral neural foraminal narrowing. DATA REPOSITORY: RADIATION DOSE DELIVERED:
== END 2024-02-06 10:15 ==
LOC: DI 09:58
PROVIDERS: PCP Family Medicine; Visit Provider Family Medicine
DX: M48.02 Spinal stenosis, cervical region (principal)
CPT/HCPCS: 72050

== ENCOUNTER 2024-04-08 16:43 | Outpatient (REF) | payer MEDICARE, BC, SELFPAY | END 2024-04-08 16:44 | disposition home or self-care (01) | LOC: LBN 16:43 | PROVIDERS: PCP Family Medicine; Visit Provider Family Medicine | DX: N39.0 Urinary tract infection, site not specified (principal); R82.89 Other abnormal findings on cytological and histological examination of urine | CPT/HCPCS: 87086 ==

== ENCOUNTER 2024-06-11 02:15 | Outpatient (CLI) | payer MEDICARE, BC, SELFPAY ==
--- NOTE | 2024-06-11 11:45 | DI.MRI_ITS ---
Exam(s) MR CERVICAL SPINE WO EXAM: MR CERVICAL SPINE WO CLINICAL HISTORY: severe neck pain and radiculopathy,cervical stenosis,m48.02, TECHNIQUE: Multiplanar multisequence MRI of the cervical spine was performed without intravenous con trast. COMPARISON: CR XR CERVICAL SPINE COMP 4-5V from 02/06/2024 FINDINGS: BONES: Vertebral body heights are maintained. Alignment is normal. Bone marrow signal intensity is wi thin normal limits. CERVICAL CORD: Craniovertebral junction is unremarkable. The cervical cord is normal size and signal intensity. SOFT TISSUES: Unremarkable. C2-3: No disc herniation or bulge is identified. No evidence of neural foraminal narrowing. No signi ficant central canal stenosis. C3-4: No disc herniation or bulge is identified. No evidence of neural foraminal narrowing. No signif icant central canal stenosis. C4-5: No disc herniation or bulge is identified. No evidence of neural foraminal narrowing. No signif icant central canal stenosis. C5-6: Mild loss of disc height. Endplate osteophytes causing moderate left and severe right neural f oraminal narrowing. No significant central canal stenosis. C6-7: Mild loss of disc height. Small endplate osteophytes. He moderate bilateral neural foraminal narrowing. No disc herniation or bulge is identified. No evidence of neural foraminal narrowing. No significant central canal stenosis. C7-T1: No disc herniation or bulge is identified. No evidence of neural foraminal narrowing. No signi ficant central canal stenosis. IMPRESSION: No evidence of disc herniation. Endplate osteophytes cause bilateral neural foraminal encroachment at C5-6 and C6-7. DATA REPOSITORY:
== END 2024-06-11 02:35 ==
LOC: DI 02:15
PROVIDERS: PCP Family Medicine; Visit Provider Family Medicine
DX: M48.02 Spinal stenosis, cervical region (principal)
CPT/HCPCS: 72141

== ENCOUNTER 2024-07-02 13:24 | Outpatient (CLI) | payer MEDICARE, BC, SELFPAY ==
[2024-07-02 13:37] VITALS: BP 162/80; PULSE 82; RESP 18; TEMP 36.6; O2SAT 99
--- NOTE | 2024-07-02 13:56 | PDOC.PAIN ---
Date of service: 07/02/24 Time of Service: 14:17 Pain Managment Procedure Note Procedure Note Procedure Note: CERVICAL EPIDURAL STEROID INJECTION ? Pre-procedure Diagnosis: M54.12- Radiculopathy, cervical region ? Post-procedure Diagnosis:? The same as above ? Sedation:? ? none ? Medication: Depo-Medrol 80 mg, Omnipaque 1 mL ? Estimated blood loss:? less than 2 cc ? Surgeon:? Nehemias Nieves MD Comment: ? Procedure Detail:? The procedure and potential risks were explained to the patient and informed written consent was obtained. The patient was escorted to the procedure room and placed in the prone position. Pillows were utilized for proper positioning and comfort. Time out was performed in the procedure room with nursing staff confirming the patient's identity, procedure to be performed, allergies, and any blood thinning or anti-platelet medications.? The patient's neck and upper back was prepped with ChloraPrep and draped in a sterile fashion. Sterile technique was maintained throughout the procedure.? Sterile gloves were used, a face mask was worn, and new single dose vials of all medications were used with the top being swabbed with alcohol and given time to dry prior to withdrawal of medication. Lidocaine 1% was used to anesthetize the skin. Using a 25-gauge 1.5 inch needle, 1% lidocaine was instilled into the superficial soft tissue overlying the targeted area to provide local anesthesia. With fluoroscopic guidance, a 17 -gauge Tuohy needle was advanced toward the interlaminar space of C7-T1. The needle was then advance through the ligamentum flavum and into the posterior epidural space using the loss of resistance technique. Correct needle placement was confirmed through review of the AP and contralateral oblique fluoroscopic views. A 19-gauge Arrow catheter was threaded cephalad to the midline C5 Following negative aspiration, one cc of Omnipaque 240 contrast was injected which confirmed good flow throughout the epidural space and no evidence of vascular flow or flow into adjacent compartments. Next, following negative aspiration, 1 cc's of normal saline and 80mg of Depo-Medrol was injected. The needle and catheter were gently removed intact. The patient tolerated the procedure well and was transported to the recovery area for observation and discharge instructions. Permanent images saved and recorded. Plan:? Follow up PRN. PAIN PRE PROCEDURE 210 POST PROCEDURE 010 COMMENT:CONSIDER REPEAT OR MEDIAL BRANCH/RF
[2024-07-02 13:59] VITALS: PULSE 93; O2SAT 99
[2024-07-02 14:00] VITALS: PULSE 92; O2SAT 99
[2024-07-02 14:10] VITALS: PULSE 84; O2SAT 99
[2024-07-02] MEDS: Epidural Tray 1 EACH MC (14:14)
[2024-07-02] MEDS: Omnipaque 240 MG/ML 50 ML BTL IJ (14:14)
[2024-07-02] MEDS: methylPREDNISolone ACETATE 40 MG/ML VIAL IJ (14:14)
--- NOTE | 2024-07-02 14:20 | DI.RAD_ITS ---
Exam(s) XR PAIN CLINIC CERVICAL SP 2V EXAM: XR PAIN CLINIC CERVICAL SP 2V CLINICAL HISTORY: DX: Cervical Radiculpathy TECHNIQUE: 2D and realtime digital imaging was performed. CONTRAST MATERIAL: Refer to procedure report. COMPARISON: No exams were available for comparison FINDINGS: Fluoroscopy was provided for Dr. Nieves during the performance of a cervical epidural steroid injec tion. Please refer to the procedure report for complete details. Ka,r=2.59 mGy IMPRESSION: RADIATION DOSE DELIVERED: 0.0 0.0 0
== END 2024-07-02 13:25 | disposition home or self-care (01) ==
LOC: PC 13:24
PROVIDERS: PCP Family Medicine; Visit Provider Anesthesiology Pain Medicine
DX: M54.2 Cervicalgia (principal); M54.12 Radiculopathy, cervical region
CPT/HCPCS: 123; 62321; 72040; 00123; J1010; Q9967

== ENCOUNTER → 2024-07-30 14:08 | Outpatient (BNVA) | payer MEDICARE, BC, SELFPAY | PROVIDERS: PCP Family Medicine; Referring Provider Family Medicine; Visit Provider Nurse Practitioner Adult Health | DX: M54.12 Radiculopathy, cervical region (principal); G25.0 Essential tremor | CPT/HCPCS: 99214 ==

== ENCOUNTER 2024-08-04 14:31 | Outpatient (REF) | payer MEDICARE, BC, SELFPAY | END 2024-08-04 14:32 | disposition home or self-care (01) | LOC: LBN 14:31 | PROVIDERS: PCP Family Medicine; Visit Provider Family Medicine | DX: N76.0 Acute vaginitis (principal); K21.9 Gastro-esophageal reflux disease without esophagitis; I10 Essential (primary) hypertension; E55.9 Vitamin D deficiency, unspecified; K44.9 Diaphragmatic hernia without obstruction or gangrene | CPT/HCPCS: 87480; 87510; 87660 ==

== ENCOUNTER 2024-08-07 12:11 | Outpatient (REF) | payer MEDICARE, BC, SELFPAY ==
[2024-08-07 18:01] LABS: C Diff PCR Negative (Negative)
[2024-08-09 10:54] LABS: Campylobacter PCR Negative (Negative); Salmonella PCR Negative (Negative); Shiga Toxin PCR Negative (Negative); Shigella/Enteroinvasive Ecoli Negative (Negative)
[2024-08-11 15:22] LABS: Giardia Ag, F Negative (Negative)
== END 2024-08-07 12:12 | disposition home or self-care (01) ==
LOC: LBN 12:11
PROVIDERS: PCP Family Medicine; Visit Provider Family Medicine
DX: R19.7 Diarrhea, unspecified (principal)
CPT/HCPCS: 87329; 87493; 87505

== ENCOUNTER 2024-08-08 12:42 | Outpatient (REF) | payer MEDICARE, BC, SELFPAY ==
[2024-08-08 13:30] LABS: Bilirubin Negative (Negative); Blood Negative (Negative); Clarity Clear (Clear); Glucose Negative (Negative); Ketones Negative (Negative); Leukocyte Esterase Negative (Negative); Nitrite Negative (Negative); Urobilinogen 0.2 mg/dL (Up to 0.2); pH 5.5 (5-8)
== END 2024-08-08 12:43 | disposition home or self-care (01) ==
LOC: LBN 12:42
PROVIDERS: PCP Family Medicine; Visit Provider Family Medicine
DX: N39.0 Urinary tract infection, site not specified (principal)
CPT/HCPCS: 81003

== ENCOUNTER 2024-08-14 01:37 | Outpatient (CLI) | payer MEDICARE, BC, SELFPAY ==
[2024-08-14 10:23] LABS: ALT 29 U/L (14-59); AST 24 U/L (15-37); Albumin 4.1 g/dL (3.4-5.0); Alkaline Phosphatase 79 U/L (46-116); BUN 11 mg/dL (7-18); Bilirubin, Total 0.5 mg/dL (0.2-1.0); CREATININE 0.8 mg/dL (0.55-1.02); Calcium 9.7 mg/dL (8.5-10.1); Calculated LDL 165 mg/dL (<100); Chloride 107 mmol/L (98-107); Cholesterol 266 mg/dL (<200); Estimated GFR 80.71 (mL/min/1.73m2); Glucose 101 mg/dL (74-106); HDL Cholesterol 84 mg/dL (>or=50); Potassium 4.4 mmol/L (3.5-5.1); Sodium 144 mmol/L (136-145); Total Protein 7.8 g/dL (6.4-8.2); Triglyceride 88 mg/dL (<150)
[2024-08-14 11:15] LABS: Vitamin B12 586 pg/mL (193-986); Vitamin D 25 Total 45 ng/mL (30-100)
== END 2024-08-14 01:38 | disposition home or self-care (01) ==
PROVIDERS: PCP Family Medicine; Visit Provider Family Medicine
DX: I10 Essential (primary) hypertension (principal); K21.9 Gastro-esophageal reflux disease without esophagitis; K44.9 Diaphragmatic hernia without obstruction or gangrene; E55.9 Vitamin D deficiency, unspecified
CPT/HCPCS: 36415; 80053; 80061; 82306; 82607

== ENCOUNTER 2024-08-14 16:21 | Outpatient (REF) | payer MEDICARE, BC, SELFPAY ==
[2024-08-14 21:07] LABS: Bilirubin Negative (Negative); Blood Negative (Negative); Clarity Cloudy (Clear); Glucose Negative (Negative); Ketones Negative (Negative); Leukocyte Esterase Negative (Negative); Nitrite Negative (Negative); Specific Gravity >= 1.030 (1.005-1.025); Urobilinogen 0.2 mg/dL (Up to 0.2); pH 5.5 (5-8)
== END 2024-08-14 16:22 | disposition home or self-care (01) ==
LOC: LBN 16:21
PROVIDERS: PCP Family Medicine; Visit Provider Family Medicine
DX: N76.0 Acute vaginitis (principal); R35.0 Frequency of micturition; R39.198 Other difficulties with micturition
CPT/HCPCS: 81003; 87480; 87510; 87660

== ENCOUNTER 2024-08-20 09:01 | Outpatient (CLI) | payer MEDICARE, BC, SELFPAY ==
--- NOTE | 2024-08-20 06:00 | DI.RAD_ITS ---
Exam(s) XR PAIN CLINIC CERVICAL SP 2V EXAM: XR PAIN CLINIC CERVICAL SP 2V CLINICAL HISTORY: DX: Cervical Spondylosis. TECHNIQUE: Fluoroscopy was provided for the referring physician for guidance with performing pain cl inic injection procedure. COMPARISON: No exams were available for comparison FINDINGS: Please see procedure note for details. Fluoro time: 36.7 seconds RADIATION DOSE DELIVERED: zachary Caballero=4.98 mGy
[2024-08-20 09:08] VITALS: BP 127/61; PULSE 81; RESP 20; TEMP 37; O2SAT 99
--- NOTE | 2024-08-20 09:35 | PDOC.PAIN_ITS ---
Date of service: 08/20/24 Time of Service: 10:00 Pain Managment Procedure Note Procedure Note Procedure Note: Cervical Facet Joint Injection of Steroid ? Location: Left Facet Joints ? Levels: C5-6,C6-7 ? 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 Post-procedure Diagnosis:? The same as above ? Sedation:? None ? Estimated blood loss:? less than 2 cc ? Surgeon: Nehemias Nieves MD COMMENT: PRE PROCEDURE PAIN SCORE: 3/10. Decision was made to proceed with intra-articular facet injections for the possibility of not having to do medial branch blocks and radiofrequency ablation if patient get long lasting relief (> 3 months). ? Procedure Detail:? The procedure and potential risks were explained to the patient and informed written consent was obtained. The patient was escorted to the procedure room and placed in the right lateral decubitus position. Pillows were utilized for proper positioning and comfort.? Time out was performed in the procedure room with nursing staff confirming the patient's identity, procedure to be performed, allergies, and any blood thinning or anti- platelet medications.? Sterile technique was maintained throughout the procedure .? The patient's cervical area was prepped with chlorhexidine and draped in a sterile fashion. A lateral fluoroscopic view was obtained, with visualization of the facet joint.? A 25gauge, Quincke needle was gently advanced through the facet capsule.? Needle placement was confirmed with fluoroscopy in AP,? and lateral views by injecting 0.25cc of contrast.? 10 mg of depomedrol and 0.25ml of 0.5% bupivacaine was injected into the capsule at C5-6, C6-7 left.? The patient tolerated the procedure well and was discharged with instructions. Permanent images saved and recorded. PAIN: PRE-PROCEDURE 3/10 POST-PROCEDURE 0/10 Plan:? Follow up prn in office or for CMBB #2. COMMENT: Before the patient left patient had greater than 100% pain relief.? Will use this as both diagnostic and potentially therapeutic.? With short-term relief from the level that it was not long-lasting then we will proceed with radiofrequency ablation Coding Conscious Sedation used for procedure: No CPT Codes: CMBB (includes Fluoro) Cervical/Thoracic, single lvl - 16781 ([id number] ~G) CMBB (includes Fluoro) Cervical/Thoracic, 2nd lvl - 00312 ([id number] ~G) Additional Codes: Date of Service (12432) Date of service: 08/20/24
[2024-08-20 09:38] VITALS: PULSE 83; O2SAT 97
[2024-08-20 09:40] VITALS: PULSE 77; O2SAT 99
[2024-08-20 09:50] VITALS: PULSE 73; O2SAT 98
[2024-08-20] MEDS: Bupivacaine 0.5% Pres-Free 10 ML VIAL IJ (09:59)
[2024-08-20] MEDS: Omnipaque 240 MG/ML 50 ML BTL IJ (10:00)
[2024-08-20] MEDS: methylPREDNISolone ACETATE 80 MG/ML VIAL IJ (10:00)
[2024-08-20] MEDS: Nerve Block Tray 1 EACH MC (10:01)
== END 2024-08-20 09:02 | disposition home or self-care (01) ==
LOC: PC 09:02
PROVIDERS: PCP Family Medicine; Visit Provider Anesthesiology Pain Medicine
DX: M54.2 Cervicalgia (principal); M47.812 Spondylosis without myelopathy or radiculopathy, cervical region
CPT/HCPCS: 64490; 64491; 72040; J0665; J1010; Q9967

== ENCOUNTER 2024-08-26 14:03 | Outpatient (REF) | payer MEDICARE, BC, SELFPAY ==
[2024-08-26 18:36] LABS: Bilirubin Negative (Negative); Blood Trace-lysed (Negative); Clarity Clear (Clear); Glucose Negative (Negative); Ketones Negative (Negative); Leukocyte Esterase Trace (Negative); Nitrite Negative (Negative); Specific Gravity <= 1.005 (1.005-1.025); Urobilinogen 0.2 mg/dL (Up to 0.2); pH 5.5 (5-8)
[2024-08-26 18:45] LABS: Bacteria Rare HPF (Negative); C & S Indicated? No; Casts Negative LPF (Negative); Crystals Negative HPF (Negative); Epithelial Cells Negative HPF (Negative); Mucus Negative (Negative); Other Cells Negative (Negative); RBC 0-2 HPF (0-2)
== END 2024-08-26 14:04 | disposition home or self-care (01) ==
LOC: LBN 14:03
PROVIDERS: PCP Family Medicine; Visit Provider Family Medicine
DX: N39.0 Urinary tract infection, site not specified (principal)
CPT/HCPCS: 81003; 81015

== ENCOUNTER 2024-09-09 09:00 | Outpatient (CLI) | payer MEDICARE, BC, SELFPAY ==
--- NOTE | 2024-09-09 09:00 | DI.MAMMO_ITS ---
Exam(s) MAMMO SCREENING EXAM: MAMMO SCREENING CLINICAL HISTORY: screening,z12.39 TECHNIQUE: Mammograms were interpreted according to the usual protocol including computer analysis w [employer] CAD system, tomosynthesis and C-view imaging. COMPARISON: 2015 through 2023 FINDINGS: The breasts are composed of heterogeneously dense fibroglandular densities, Breast Density category C . No suspicious masses or suspicious microcalcifications are seen. No skin thickening or abnormal axillary lymph nodes are seen. There has been no significant change from prior exams. IMPRESSION: BI-RADS Category 1, Negative mammogram. Yearly screening mammography is recommended. Breast Density Category C, heterogeneously Dense. The mammogram demonstrates the patient's breast tissue is dense. Dense breast tissue is very common a nd is not abnormal but dense breast tissue can make it harder to find cancer on a mammogram. Also, de nse breast tissue may increase breast cancer risk. This information about the result of the mammogram report was provided to the patient to raise their awareness. Use this report when you speak with the patient about their risks for breast cancer, which includes their family history. At that time, you may recommend additional screening tests (Ultrasound or MRI) as they might be useful based on their r isk. A negative radiographic report should not delay biopsy if a dominant or clinically suspicious mass is present. Up to ten percent of cancers are not identified on mammography. A negative report may reinforce clinical impression. Adenosis and dense breasts may obscure an underlying neoplasm. False positive reports average 6 to 10%.
[2024-09-10 21:48] LABS: Bilirubin Negative (Negative); Blood Negative (Negative); Clarity Clear (Clear); Glucose Negative (Negative); Ketones Negative (Negative); Leukocyte Esterase Moderate (Negative); Nitrite Negative (Negative); Specific Gravity <= 1.005 (1.005-1.025); Urobilinogen 0.2 mg/dL (Up to 0.2); pH 5.5 (5-8)
[2024-09-10 21:56] LABS: Epithelial Cells Rare HPF (Negative); RBC Negative HPF (0-2); WBC 20-50 HPF (0-5)
[2024-09-10 21:57] LABS: Bacteria Negative HPF (Negative); C & S Indicated? Yes; Crystals Negative HPF (Negative); Mucus Negative (Negative)
== END 2024-09-09 10:00 | disposition home or self-care (01) ==
LOC: LBN 09-10 21:39 → DI 10-24 13:09
PROVIDERS: PCP Family Medicine; Visit Provider Family Medicine
DX: Z12.31 Encounter for screening mammogram for malignant neoplasm of breast (principal); R92.333 Mammographic heterogeneous density, bilateral breasts
CPT/HCPCS: 77063; 77067; 87077; 81003; 81015; 87086; 87186

== ENCOUNTER 2024-09-10 09:28 | Outpatient (CLI) | payer MEDICARE, BC, SELFPAY | END 2024-09-10 09:29 | disposition home or self-care (01) | LOC: LBO 10-24 08:34 | PROVIDERS: PCP Family Medicine; Visit Provider Family Medicine | DX: N39.0 Urinary tract infection, site not specified (principal); R82.89 Other abnormal findings on cytological and histological examination of urine | CPT/HCPCS: 87077; 81003; 81015; 87086; 87186 ==

== ENCOUNTER 2025-03-18 10:57 | Outpatient (CLI) | payer MEDICARE, BC, SELFPAY ==
--- NOTE | 2025-03-18 06:00 | DI.RAD_ITS ---
Exam(s) XR PAIN CLINIC CERVICAL SP 2V EXAM: XR PAIN CLINIC CERVICAL SP 2V CLINICAL HISTORY: DX: Cervical Spondylosis TECHNIQUE: 2D and realtime digital imaging was performed. CONTRAST MATERIAL: Refer to procedure report. COMPARISON: No exams were available for comparison FINDINGS: Fluoroscopy was provided for Dr. Nieves during the performance of a cervical medial branch block. Please refer to the procedure report for complete details. Ka,r=3.31 mGy IMPRESSION: RADIATION DOSE DELIVERED: 0.0 0.0 0
[2025-03-18 11:23] VITALS: BP 140/64; PULSE 80; RESP 14; TEMP 36.4; O2SAT 98
--- NOTE | 2025-03-18 11:34 | PDOC.PAIN_ITS ---
Date of service: 03/18/25 Time of Service: 12:20 Pain Managment Procedure Note Procedure Note Procedure Note: Cervical Facet Joint Injection of Steroid ? Location: Left Facet Joints ? Levels: C5-6, C6-7 ? 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 Post-procedure Diagnosis:? The same as above ? Sedation:? None ? Estimated blood loss:? less than 2 ml ? Surgeon: Nehemias Nieves MD COMMENT: PRE PROCEDURE PAIN SCORE: 6/10. Decision was made to proceed with intra-articular facet injections for the possibility of not having to do medial branch blocks and radiofrequency ablation if patient get long lasting relief (> 3 months).Patient had good relief from cervical facet injection at C5-6 and C6?7 -3-4 months and is here for repeat. Pt has degenerative changes at C 5 6 and C6- 7 cause mild bilateral neural foraminal narrowing. ? Procedure Detail:? The procedure and potential risks were explained to the patient and informed written consent was obtained. The patient was escorted to the procedure room and placed in the [left] [right] lateral decubitus position. Pillows were utilized for proper positioning and comfort.? Time out was performed in the procedure room with nursing staff confirming the patient's identity, procedure to be performed, allergies, and any blood thinning or anti- platelet medications.? Sterile technique was maintained throughout the procedure.? The patient's cervical area was prepped with chlorhexidine and draped in a sterile fashion. A lateral fluoroscopic view was obtained, with visualization of the facet joint.? A 25gauge, Quincke needle was gently advanced through the facet capsule.? Needle placement was confirmed with fluoroscopy in AP,? and lateral views by injecting 0.25 ml of contrast.? 20 mg of depomedrol and 0.25ml of 0.5% bupivacaine was injected into the capsule at C5-6,C6-7 left .? The patient tolerated the procedure well and was discharged with instructions. Permanent images saved and recorded. PAIN: PRE-PROCEDURE 6/10 POST-PROCEDURE 0/10 Plan:? Follow up prn COMMENT: Before the patient left patient had greater than 100% pain relief.? Will use this as both diagnostic and potentially therapeutic.? With short-term relief from the level that it was not long-lasting then we will proceed with radiofrequency ablation . Coding Conscious Sedation used for procedure: No CPT Codes: CMBB (includes Fluoro) Cervical/Thoracic, 2nd lvl - 38681 ([id number] ~G) CMBB (includes Fluoro) Cervical/Thoracic, single lvl - 44355 ([id number] ~G) Additional Codes: Date of Service () Diagnoses: M47.812 Spondylosis without myelopathy or radiculopathy, cervical region
[2025-03-18 12:19] VITALS: PULSE 74; O2SAT 97
[2025-03-18] MEDS: Bupivacaine 0.5% Pres-Free 10 ML VIAL IJ (12:21)
[2025-03-18] MEDS: Omnipaque 240 MG/ML 50 ML BTL IJ (12:22)
[2025-03-18] MEDS: Nerve Block Tray 1 EACH MC (12:23)
[2025-03-18] MEDS: methylPREDNISolone ACETATE 40 MG/ML VIAL (15:04)
== END 2025-03-18 10:58 | disposition home or self-care (01) ==
PROVIDERS: PCP Family Medicine; Visit Provider Anesthesiology Pain Medicine
DX: M54.2 Cervicalgia (principal); M47.812 Spondylosis without myelopathy or radiculopathy, cervical region
CPT/HCPCS: 64490; 64491; 72040; J0665; J1010; Q9967

== ENCOUNTER → 2025-04-13 09:05 | Outpatient (BNVA) | payer MEDICARE, BC, SELFPAY | PROVIDERS: PCP Family Medicine; Referring Provider Family Medicine; Visit Provider Nurse Practitioner Adult Health | DX: G25.0 Essential tremor (principal) | CPT/HCPCS: 99213 ==

== ENCOUNTER 2025-05-19 09:08 | Outpatient (CLI) | payer MEDICARE, BC, SELFPAY ==
--- NOTE | 2025-05-19 06:00 | DI.RAD_ITS ---
Exam(s) XR PAIN CLINIC CERVICAL SP 2V EXAM: XR PAIN CLINIC CERVICAL SP 2V CLINICAL HISTORY: Dx: Cervical Radiculopathy TECHNIQUE: 2D and realtime digital imaging was performed. Radiologist not present. CONTRAST MATERIAL: None. COMPARISON: No exams were available for comparison FINDINGS: Fluoroscopy was provided for pain management therapy. Cervical epidural steroid injection. Please refer to procedure report or details. Radiation Exposure Index: Ka,r=1.97 mGy IMPRESSION: As above. RADIATION DOSE DELIVERED:
[2025-05-19 08:59] VITALS: BP 129/73; PULSE 82; RESP 18; TEMP 36.4; O2SAT 97
--- NOTE | 2025-05-19 09:29 | PDOC.PAIN ---
Date of service: 05/19/25 Time of Service: 10:02 Pain Managment Procedure Note Procedure Note Procedure Note: CERVICAL EPIDURAL STEROID INJECTION ? Pre-procedure Diagnosis: M54.12- Radiculopathy, cervical region ? Post-procedure Diagnosis:? The same as above ? Sedation:? ? none ? Medication: Depo-Medrol 80 mg, Omnipaque 1 mL ? Estimated blood loss:? less than 2 ml ? Surgeon:? Nehemias Nieves MD Comment: ? Procedure Detail:? The procedure and potential risks were explained to the patient and informed written consent was obtained. The patient was escorted to the procedure room and placed in the prone position. Pillows were utilized for proper positioning and comfort. Time out was performed in the procedure room with nursing staff confirming the patient's identity, procedure to be performed, allergies, and any blood thinning or anti-platelet medications.? The patient's neck and upper back was prepped with ChloraPrep and draped in a sterile fashion. Sterile technique was maintained throughout the procedure.? Sterile gloves were used, a face mask was worn, and new single dose vials of all medications were used with the top being swabbed with alcohol and given time to dry prior to withdrawal of medication. Lidocaine 1% was used to anesthetize the skin. Using a 25-gauge 1.5 inch needle, 1% lidocaine was instilled into the superficial soft tissue overlying the targeted area to provide local anesthesia. With fluoroscopic guidance, a 17 -gauge Tuohy needle was advanced toward the interlaminar space of C7-T1. The needle was then advance through the ligamentum flavum and into the posterior epidural space using the loss of resistance technique. Correct needle placement was confirmed through review of the AP and contralateral oblique fluoroscopic views. A 19-gauge Arrow catheter was threaded cephalad to the Left C5 Following negative aspiration, 1 ml of Omnipaque 240 contrast was injected which confirmed good flow throughout the epidural space and no evidence of vascular flow or flow into adjacent compartments. Next, following negative aspiration, 1 ml of normal saline and 80mg of Depo-Medrol was injected. The needle and catheter were gently removed intact. The patient tolerated the procedure well and was transported to the recovery area for observation and discharge instructions. Permanent images saved and recorded. Plan:? Follow up PRN. PAIN PRE PROCEDURE 8 10 POST PROCEDURE 0/10 COMMENT: Consider repeating medial branch radiofrequency ablation at the lower cervical facets I would proceed with C5, 6 and 7medial branches since she had essentially 2 successful blocks. Coding Conscious Sedation used for procedure: No CPT Codes: Inj Spine C/T w/Imaging - [id number] ([id number] ~G) Additional Codes: Date of Service () Diagnoses: M54.12- Radiculopathy, cervical region
[2025-05-19 10:07] VITALS: PULSE 75; O2SAT 98
[2025-05-19] MEDS: Omnipaque 240 MG/ML 50 ML BTL IJ (10:09)
[2025-05-19] MEDS: methylPREDNISolone ACETATE 40 MG/ML VIAL IJ (10:09)
[2025-05-19] MEDS: Epidural Tray 1 EACH MC (10:10)
== END 2025-05-19 09:09 | disposition home or self-care (01) ==
LOC: PC 09:08
PROVIDERS: PCP Family Medicine; Visit Provider Anesthesiology Pain Medicine
DX: M54.2 Cervicalgia (principal); M54.12 Radiculopathy, cervical region
CPT/HCPCS: 62321; 72040; J1010; Q9967